=== PATIENT | female | born 1980 ===

== ENCOUNTER → 2018-11-15 | Day surgery (SDC) | payer OTHER ==
[~2018-11-15] MED LIST: LIDOCAINE 1% INJ-PF (10 MG/ML) 30 ML SDV ONE
--- NOTE | 2018-11-19 15:31 | WOMENS IMAGING REPORT ---
EXAM DESCRIPTION: LEFT DIAGNOSTIC MAMMO W/CAD; U/S BREAST BX COMPLETED DATE/TIME: 11/15/2018 2:14 pm; 11/15/2018 2:19 pm REASON FOR STUDY: N63.20 S/P LEFT US BX; BREAST BX N64.52 NIPPLE DISCHARGE COMPARISON: Outside mammograms and ultrasound TECHNIQUE: The procedure was discussed with the patient and the patient agreed to proceed. The patient was scanned and the area of interest in the 12 o'clock position 10 cm from the nipple of the left breast was localized. This correlates with the area of concern on prior imaging studies. Th is area was targeted for ultrasound-guided core biopsy. After sterile skin prep and 3.0 mL local lidocaine 1 % skin and deep tissue anesthesia, a 14 gauge co axial core biopsy needle was used to obtain several cores of tissue from the lesion. Under ultrasoun d guidance, a ribbon clip was placed in the areas sampled. There were no immediate post-procedure co mplications. MAMMOGRAM: Post-procedure two view mammogram was acquired in the digital mammogram suite. The clip wa s in the expected location. No significant hematoma. Pathology yields a diagnosis of fibrocystic. No atypia or malignancy. Pathology is concordant. LIMITATIONS: None. FINDINGS: Ultrasound guided breast biopsy as described above. POST PROCEDURE MAMMOGRAMS FOR MARKER PLACEMENT: Yes IMPRESSION: ULTRASOUND-GUIDED CORE BIOPSY OF THE LEFT BREAST YIELDS A DIAGNOSIS OF FIBROCYSTIC BRENNAN E, NO ATYPIA OR MALIGNANCY. BI-RADS 2, BENIGN FINDINGS COMMENT: PATIENT SHOULD RESUME BILATERAL SCREENING MAMMOGRAPHY/TOMOSYNTHESIS IN 2019. COMMUNICATION: FINDINGS DISCUSSED WITH THE PATIENT, 1530 HOURS 11/19/2018. SHE UNDERSTANDS THIS WAS A BENIGN BIOPSY AND THAT SHE SHOULD RETURN TO SCREENING. Patient medication list reviewed: Yes- Quality ID# [id number]:Eligible professional attests to documenting i n the medical record they obtained, updated, or reviewed the patient's current medications. TECHNICAL DOCUMENTATION: JOB ID: [id number] [employer]- All Rights Reserved Reading location - IP/workstation name: [email or web address]
== END ==
LOC: WI 12:45 → EDSTATUS 13:00
PROVIDERS: ATTEND Physician Assistant
DX: N60.12 Diffuse cystic mastopathy of left breast (principal); N64.4 Mastodynia; N64.52 Nipple discharge
CPT/HCPCS: 88305 ×2; 19083; 77065; J3490